=== PATIENT | male | born 1990 | race Caucasian/White ===

== ENCOUNTER 2024-03-06 15:58 | Emergency (ER) | payer OTHER ==
[~2024-03-06 15:58] MED LIST: EPINEPHrine 1 MG/10 ML Abboject SYRINGE ONE
== END 2024-03-06 19:39 | disposition expired ==
LOC: NAV ERS 15:58
DX: I46.9 Cardiac arrest, cause unspecified (principal); S82.91XB Unspecified fracture of right lower leg, initial encounter for open fracture type I or II; M21.922 Unspecified acquired deformity of left upper arm; M21.952 Unspecified acquired deformity of left thigh; Z51.5 Encounter for palliative care; V49.49XA Driver injured in collision with other motor vehicles in traffic accident, initial encounter; W22.10XA Striking against or struck by unspecified automobile airbag, initial encounter
CPT/HCPCS: 31500; 92950; G0390; J0171